=== PATIENT | female | born 1995 | race American Indian/Alaskan Native ===

== ENCOUNTER 2017-06-22 16:46 | Outpatient (CLI) | payer BC ==
[2017-06-22] MEDS ORDERED: LACTATED RINGERS 500 ML IV ONE (17:20)
--- NOTE | 2017-06-22 20:13 | Ultrasound Report ---
FINAL REPORT PROCEDURE: US OB BPP WO NON-STRESS TECHNIQUE: Sonographic evaluation for breathing, movement, tone, and amniotic fluid volume was performed. CPT 86371 HISTORY: decreased fm COMPARISON: No prior studies are available for comparison. FINDINGS: Amniotic fluid volume: Normal-score 2. At least one vertical pocket > 2 cm or more in vertical axis. breathing: Normal-score 2. movement: Normal-score 2. tone: Normal. Score: 8 of 8. heart rate of 145 beats per minute is detected. position was not documented by the teacher assistant. IMPRESSION: Biophysical profile score 8/8. heart rate 145 beats per minute. Further evaluation was neither requested nor performed.
--- NOTE | 2017-06-22 20:55 | Ultrasound Report ---
FINAL REPORT PROCEDURE: US OB LIMITED TECHNIQUE: Real-time limited sonographic examination was performed for evaluation of amniotic fluid index for each fetus with image documentation (1 or more fetuses). CPT 01319 HISTORY: Evaluate amniotic fluid index. COMPARISON: No prior studies are available for comparison. FINDINGS: Single living intrauterine gestation visualized currently in the vertex presentation with heart rate of 145 beats per minute. Subjectively the amount of amniotic fluid appears normal. The amniotic fluid index is normal measuring 19.1 centimeter. Further evaluation was neither requested nor performed. IMPRESSION: Single living intrauterine gestation visualized vertex presentation. Both subjectively and by amniotic fluid index the amount of amniotic fluid appears normal. Further evaluation was neither requested nor performed.
[2017-06-22 21:09] VITALS: BP 134/84
== END 2017-06-22 19:40 | disposition home or self-care (01) ==
LOC: TRG 16:46
PROVIDERS: ATTEND Obstetrics & Gynecology
DX: O36.8130 Decreased fetal movements, third trimester, not applicable or unspecified (principal); O47.03 False labor before 37 completed weeks of gestation, third trimester; Z3A.35 35 weeks gestation of pregnancy
CPT/HCPCS: 59025; 76815; 76819

== ENCOUNTER 2017-07-02 05:44 | Inpatient (IN) | payer BC ==
[2017-07-02] MEDS ORDERED: MINERAL OIL PO PRN (06:51)
[2017-07-02] MEDS ORDERED: BRETHINE IVP PRN (06:51)
[2017-07-02] MEDS ORDERED: XYLOCAINE 2% INFILTRATI ONE (06:51)
[2017-07-02] MEDS ORDERED: ePHEDrine SULFATE IV PRN ×2 (06:51→16:31)
[2017-07-02] MEDS ORDERED: BRETHINE SUB-Q PRN (06:51)
[2017-07-02] MEDS ORDERED: PITOCin/NS 20 UNIT/1000ML DRIP 20 UNITS/1,000 ML BAG IV SCH (07:00)
[2017-07-02 08:01] LABS: Hematocrit 36.4 % (30.3-42.9); Hemoglobin 12.1 gm/dl (10.1-14.3); Mean Corpuscular HGB Conc 33 % (30-34); Mean Corpuscular Hemoglobin 28 pg (28-32); Mean Corpuscular Volume 84 fl (79-97); Platelet Count 245 K/mm3 (140-440); Red Blood Count 4.35 M/mm3 (3.65-5.03); Red Cell Distribution Width 14.5 % (13.2-15.2)
[2017-07-02] MEDS: NORMOSOL-R PH 7.4 1,000 ML IV SCH ×5 (08:48→21:13)
[2017-07-02] MEDS ORDERED: PITOCin/NS 30 UNIT/500ML 30 UNITS/500 ML BAG IV SCH (12:00)
--- NOTE | 2017-07-02 14:53 | History and Physical Report ---
History of Present Illness Date of examination: 07/02/17 Date of admission: 07/02/17 05:45 Chief complaint: leaking History of present illness: This is a 22 yo EDC 07/19/17 at 37 weeks came in c/o leaking of fluid. She is a patient of [facility] as a transfer patient. She states that she broke her water this am. Past History Past Medical History: asthma Past Surgical History: other (wisdom tooth extraction) Family/Genetic History: hypertension Social history: no significant social history, single. denies: smoking, alcohol abuse, prescription drug abuse - Obstetrical History Expected Date of Delivery: 07/19/17 Actual Gestation: 37 Week(s) 4 Day(s) : 2 Para: 0 Hx # Term Pregnancies: 0 Number of Pregnancies: 0 Spontaneous Abortions: 0 Induced : 1 Number of Living Children: 0 Medications and Allergies Allergies Allergy/AdvReac Type Severity Reaction Status Date / Time Penicillins Allergy Shortness Verified 06/22/17 17:19 of Breath Home Medications Medication Instructions Recorded Confirmed Last Taken Type No Known Home Medications [No 06/22/17 07/02/17 Unknown History Reported Home Medications] Active Meds: Active Medications Ephedrine Sulfate (Ephedrine Sulfate) 10 mg IV Q2M PRN PRN Reason: Hypotension Parenteral Electrolytes (Normosol-R Ph 7.4) 1,000 mls @ 125 mls/hr IV DIRECT DIEGO Last Admin: 07/02/17 12:18 Dose: 125 mls/hr Oxytocin/Sodium Chloride (Pitocin/Ns 20 Unit/1000ml Drip) 20 units in 1,000 mls @ 125 mls/hr IV DIRECT DIEGO Oxytocin/Sodium Chloride (Pitocin/Ns 30 Unit/500ml) 30 units in 500 mls @ 4 mls /hr IV TITR DIEGO; Protocol Last Titration: 07/02/17 14:00 Dose: 12 mls/hr, 12 mls/hr Mineral Oil (Mineral Oil) 30 ml PO QHS PRN PRN Reason: Constipation Terbutaline Sulfate (Brethine) 0.25 mg SUB-Q ONCE PRN PRN Reason: Hyperstimulation/Hypertonicity Terbutaline Sulfate (Brethine) 0.25 mg IVP ONCE PRN PRN Reason: Hyperstimulation/Hypertonicity Review of Systems All systems: negative Genitourinary: leakage of fluid - Vital Signs Vital signs: Vital Signs Temp Resp 98.8 F 18 07/02/17 06:09 07/02/17 06:09 Temp Pulse Resp BP Pulse Ox 96.9 F L 91 H 16 122/82 98 07/02/17 07:36 07/02/17 14:48 07/02/17 07:36 07/02/17 07:40 07/02/17 14:48 - Physical Exam Breasts: Positive: normal Cardiovascular: Regular rate, Normal S1 Lungs: Positive: Clear to auscultation, Normal air movement Abdomen: Positive: normal appearance, soft, normal bowel sounds. Negative: distention, tenderness, guarding Genitourinary (Female): Positive: normal external genitalia, normal perenium Vulva: both: normal Vagina: Positive: normal moisture Cervix: Positive: lesion Uterus: Positive: normal size Anus/Rectum: Positive: normal perianal skin, heme negative Extremities: Positive: normal Deep Tendon Reflex Grade: Normal +2 - Obstetrical FHR: category 1 Cervical Dilatation: 1 Cervical Effacement Percentage: 50 station: -2 Uterine Contraction Pattern: Regular Uterine Tone Measurement Phase: Contraction Uterine Contraction Intensity: Mild Results Result Diagrams: 07/02/17 07:50 All other labs normal. Assessment and Plan A/P HD#1 IUP 39 + 4 weeks srom GBS neg start pitocin offer epidural expect vaginal delivery
[2017-07-02] MEDS ORDERED: NARCAN 2 MG/2 ML IV PRN (16:31)
--- NOTE | 2017-07-02 16:31 | Anesthesia Consultation ---
Anesthesia Consult and Med Hx Date of service: 07/02/17 - Airway Anesthetic Teeth Evaluation: Good ROM Head & Neck: Adequate Mental/Hyoid Distance: Adequate Mallampati Class: Class II Intubation Access Assessment: Probably Good - Pre-Operative Health Status ASA Pre-Surgery Classification: ASA2 Proposed Anesthetic Plan: Epidural, Spinal - Pulmonary Hx Asthma: Yes (inhaler used prn) COPD: No Hx Pneumonia: No - Cardiovascular System Hx Hypertension: No - Central Nervous System Hx Seizures: No Hx Psychiatric Problems: No - Endocrine Hx Renal Disease: No Hx End Stage Renal Disease: No Hx Hypothyroidism: No Hx Hyperthyroidism: No - Hematic Hx Anemia: No Hx Sickle Cell Disease: No - Other Systems Hx Alcohol Use: No
[2017-07-02] MEDS ORDERED: fentaNYL-BUPIV 2 MCG/ML-0.125% 200 MCG/100 ML BAG EPIDURAL SCH (17:00)
[2017-07-03] MEDS ORDERED: REGLAN IV ONE (02:59)
[2017-07-03] MEDS ORDERED: BICITRA PO ONE (02:59)
[2017-07-03] MEDS ORDERED: PEPCID IV ONE (02:59)
[2017-07-03] MEDS ORDERED: GARAMYCIN/NS 120MG/100ML 120 MG/100 ML BAG IV SCH (03:00)
[2017-07-03] MEDS ORDERED: PITOCin/NS 20 UNIT/1000ML DRIP 20 UNITS/1,000 ML BAG IV SCH ×2 (03:00→04:00)
[2017-07-03] MEDS ORDERED: NORMOSOL-R PH 7.4 1,000 ML IV SCH (03:00)
[2017-07-03] MEDS ORDERED: CLEOCIN 600 MG/50 mL 600 MG/50 ML BAG IV NR (03:00)
--- NOTE | 2017-07-03 03:03 | Event Note ---
Date: 07/03/17 The patient progressed to C/C/+1 and commenced pushing but has not had any descent after 2 hours of effective maternal effort. Discussed with patient the available options and she has elected for a primary delivery.
--- NOTE | 2017-07-03 03:06 | Procedure Note ---
OB Delivery Note - Delivery Date of Delivery: 07/03/17 Surgeon: EDGAR REYNOLDS Estimated blood loss: other (600ml) - Section Preop diagnosis: arrest of descent Postop diagnosis: same section procedure: section, primary low transverse Disposition: PACU Complications: none - Infant A at 1 minute: 7 at 5 minutes: 9 Infant Gender: Female (weight 8 lbs. 1 oz.)
[2017-07-03] MEDS ORDERED: MILK OF MAGNESIA PO PRN (03:13)
[2017-07-03] MEDS ORDERED: TORADOL IV PRN (03:13)
[2017-07-03] MEDS ORDERED: TYLENOL PO PRN (03:13)
[2017-07-03] MEDS ORDERED: MYLICON PO PRN (03:13)
[2017-07-03] MEDS ORDERED: MORPHINE IV PRN (03:13)
[2017-07-03] MEDS ORDERED: TUCKS PAD TP PRN (03:13)
[2017-07-03] MEDS ORDERED: NARCAN 0.4 MG/1 ML IV PRN ×2 (03:13→04:51)
[2017-07-03] MEDS ORDERED: LANSINOH TP PRN (03:13)
[2017-07-03] MEDS ORDERED: XYLOCAINE MPF 2% ONE ×7 (03:17→04:16)
[2017-07-03] MEDS: NORMOSOL-R PH 7.4 1,000 ML IV SCH (03:18)
[2017-07-03] MEDS ORDERED: NACL 0.9% IR ONE (03:30)
[2017-07-03] MEDS ORDERED: WATER FOR IRRIG STERILE IR ONE (03:30)
[2017-07-03] MEDS ORDERED: TORADOL ONE (03:44)
[2017-07-03] MEDS ORDERED: ZOFRAN ONE (03:44)
[2017-07-03] MEDS ORDERED: KETALAR ONE (03:48)
[2017-07-03] MEDS ORDERED: SODIUM CHLORIDE FLUSH SYRINGE 10 ML IV PRN (04:00)
[2017-07-03] MEDS ORDERED: D5LR 1,000 ML IV SCH (04:00)
[2017-07-03] MEDS ORDERED: VERSED ONE (04:00)
[2017-07-03] MEDS ORDERED: ASTRAMORPH PF 10MG/10ML ONE (04:15)
--- NOTE | 2017-07-03 04:29 | Operative Report ---
Operative Report Operative Report: Date of surgery: 07/03/2017 Preoperative diagnosis: at 37+5 weeks; spontaneous rupture membranes; arrested descent Postoperative diagnosis: Same as above Procedure: Primary low-transverse delivery Surgeon: Jolynn Tapia M.D.Anesthesia: Regional Estimated blood loss: 600 mL Findings: Liveborn female infant with Apgars of 7 and 9 weight 8 lbs. 1 oz. Indications: 22-year-old at 37+5 weeks who presented with spontaneous rupture membranes. The patient's intrapartum course was complicated by arrest of descent at +1 station. Procedure: The patient was taken to the operating room and given regional anesthesia without complication. She was prepped and draped in a normal sterile fashion. A Pfannenstiel skin incision was made down to layer the fascia which was nicked in the midline extended laterally with the Bovie cautery. The superior aspect of the rectus fascia was grasped with [place] clamps x2 and the rectus muscles off sharply. This was done in inferior fashion as well. The rectus muscle midline and peritoneum entered bluntly. An Oliverio retractor was then inserted. A bladder blade was placed. The vesicouterine peritoneum was then entered sharply with Metzenbaum scissors. A bladder flap was created digitally. A low transverse uterine incision was then made and extended digitally. There was clear fluid upon entry into the uterine cavity. The was noted to be in OP position upon entry into the uterine cavity. The head was delivered through the incision with fundal pressure. The cord was clamped and cut x2 and was passed off to pediatrics. The placenta was then manually extracted. The uterus was then exteriorized and cleared of clots and debris. The uterine incision was then closed in a running locked fashion with 0 Vicryl additional imbricating stitch was applied for 2 layer closure. The serosa was then reapproximated with 3-0 Vicryl. The posterior cul-de-sac was then copiously irrigated. The uterus was replaced back into the abdomen and pelvis were the gutters were then irrigated. The Oliverio retractor was then removed. The peritoneum was then reapproximated with 3-0 Vicryl incorporating the rectus muscle. The fascia was then closed with 0 Vicryl in a running fashion. The skin was then reapproximated with 3-0 Monocryl on a Albaro needle subcuticular fashion. Steri-Strips to place across the incision and a Crede procedures performed at the end of the surgery. A pressure dressing was applied to the incision. The surgery productive of a liveborn female infant with Apgars of 7 and 9 weight 8 lbs. 1 oz. The patient was taken to the recovery room in stable condition. All sponge laps and needle counts correct x2.
[2017-07-03] MEDS ORDERED: PHENERGAN PR PRN (04:51)
[2017-07-03] MEDS ORDERED: DILAUDID IV PRN (04:51)
[2017-07-03] MEDS ORDERED: BENADRYL IV PRN (04:51)
[2017-07-03] MEDS ORDERED: ZOFRAN IV PRN (04:51)
[2017-07-03] MEDS ORDERED: PHENERGAN PO PRN (04:51)
[2017-07-03] MEDS ORDERED: NUBAIN IV PRN (04:51)
[2017-07-03] MEDS ORDERED: SODIUM CHLORIDE FLUSH SYRINGE 10 ML IV NR (05:00)
[2017-07-03 15:25] LABS: Hematocrit 29.4 % (30.3-42.9); Hemoglobin 9.6 gm/dl (10.1-14.3)
[2017-07-03] MEDS ORDERED: NACL 0.9% 1000 ML 1,000 ML IV ONE (16:56)
--- NOTE | 2017-07-03 18:29 | Progress Note ---
Assessment and Plan - Patient Problems (1) Tachycardia Current Visit: Yes Status: Acute Plan to address problem: Continue to monitor closely for hemodynamic instability Patient currently doing well The patient's pain is well controlled Subjective - Subjective Date of service: 07/03/17 Interval history: The patient is without complaints. She has had minimal need for pain meds. Her postoperative course has been complicated by tachycardia however the patient remains asymptomatic. Patient reports: appetite normal, pain well controlled : doing well Objective - Vital Signs Latest vital signs: Vital Signs Temp Pulse Resp BP BP Pulse Ox 07/03/17 18:05 99.9 F H 127 H 20 114/77 97 07/03/17 16:46 113 H 07/03/17 16:45 125 H 07/03/17 16:30 99.5 F 130 H 20 117/65 07/03/17 12:00 98.6 F 100 H 132/80 07/03/17 08:55 98.5 F 102 H 20 134/85 07/03/17 05:35 119 H 17 136/84 97 07/03/17 05:30 98.3 F 117 H 16 128/80 98 07/03/17 05:25 116 H 20 124/80 98 07/03/17 05:20 117 H 21 126/82 98 07/03/17 05:15 110 H 20 129/80 98 07/03/17 05:10 116 H 21 128/89 99 07/03/17 05:05 107 H 44 H 119/79 99 07/03/17 05:00 114 H 32 H 127/83 99 07/03/17 04:55 114 H 29 H 129/83 98 07/03/17 04:50 124 H 33 H 129/86 99 18 04:45 118 H 14 120/85 99 07/03/17 04:40 125 H 28 H 100 07/03/17 04:36 98.1 F 07/03/17 02:49 168 H 100 18 02:48 151 H 90/50 07/03/17 02:44 165 H 100 18 02:39 145 H 100 07/03/17 02:34 144 H 100 07/03/17 02:29 147 H 100 07/03/17 02:24 121 H 100 07/03/17 02:19 120 H 100 03/17/18 02:17 111 H 113/66 17/18 02:14 132 H 100 0317/18 02:10 157 H 90 07/03/18 02:09 144 H 98 031718 02:04 142 H 99 0317/18 01:59 136 H 100 17/18 01:54 160 H 100 17/18 01:49 105 H 99 17/18 01:47 100 H 105/58 17/18 01:44 99 H 100 1718 01:39 98 H 100 0317/18 01:34 99 H 100 17/18 01:29 101 H 100 17/18 01:24 103 H 100 17/18 01:19 112 H 100 18 01:17 113 H 92/59 17/18 01:14 138 H 100 18 01:09 129 H 100 0318 01:04 145 H 100 18 00:59 141 H 100 1718 00:54 162 H 100 18 00:49 141 H 100 17/18 00:48 153 H 115/86 17/18 00:44 133 H 100 17/18 00:39 138 H 100 0317/18 00:34 150 H 99 17/18 00:29 154 H 100 0317/18 00:24 125 H 100 17/18 00:19 126 H 100 0317/18 00:18 120 H 136/89 17/18 00:14 132 H 100 17/18 00:09 124 H 100 17/18 00:04 126 H 100 0316/18 23:59 132 H 100 0316/18 23:54 123 H 100 0316/18 23:49 117 H 100 0316/18 23:48 110 H 136/83 0316/18 23:44 97 H 100 0316/18 23:39 112 H 100 0316/18 23:34 117 H 100 0316/18 23:29 121 H 100 0316/18 23:24 127 H 100 0316/18 23:19 97 H 100 0316/18 23:18 90 125/78 16/18 23:14 100 H 100 03/16/18 23:09 96 H 100 03/16/18 23:04 96 H 100 03/16/18 22:59 104 H 100 03/16/18 22:54 106 H 100 03/16/18 22:49 126 H 100 03/16/18 22:44 108 H 100 03/16/18 22:39 112 H 100 03/16/18 22:34 98 H 100 03/16/18 22:29 90 100 03/16/18 22:24 86 100 03/16/18 22:19 84 100 03/16/18 22:17 88 107/61 03/16/18 22:14 85 100 03/16/18 22:09 83 100 03/16/18 22:04 93 H 100 03/16/18 21:59 104 H 100 03/16/18 21:54 96 H 100 03/16/18 21:49 95 H 100 03/16/18 21:48 88 105/64 03/16/18 21:44 89 100 03/16/18 21:39 108 H 100 03/16/18 21:34 99 H 100 03/16/18 21:29 125 H 100 03/16/18 21:24 130 H 100 03/16/18 21:19 103 H 99 03/16/18 21:14 101 H 104/68 99 03/16/18 21:09 108 H 99 03/16/18 21:04 119 H 98 03/16/18 20:59 89 99 03/16/18 20:58 112 H 111/75 90 03/16/18 20:54 96 H 99 03/16/18 20:49 85 99 03/16/18 20:44 90 99 03/16/18 20:43 94 H 109/71 03/16/18 20:39 84 99 03/16/18 20:34 88 99 03/16/18 20:29 89 100 03/16/18 20:23 83 99 03/16/18 20:18 87 100 03/16/18 20:13 90 100 03/16/18 20:08 79 99 03/16/18 20:04 104 H 94 03/16/18 20:03 101 H 98 03/16/18 20:00 114 H 123/57 03/16/18 19:58 112 H 97 03/16/18 19:53 97 H 96 03/16/18 19:49 99 H 94 18 19:48 79 97 18 19:43 94 H 113/76 96 18 19:38 102 H 96 18 19:33 104 H 98 1618 19:29 100 H 114/79 18 19:28 97 H 97 18 19:23 89 97 18 19:18 96 H 97 18 19:14 102 H 118/72 18 19:13 109 H 97 07/02/17 19:08 111 H 98 18 19:06 100 H 114/76 07/02/17 19:03 111 H 97 07/02/17 19:02 98.1 F 20 07/02/17 18:58 114 H 114/71 96 18 18:53 100 H 95 18 18:48 110 H 97 18 18:43 108 H 113/68 97 18 18:41 101 H 93 18 18:38 104 H 97 18 18:34 94 H 94 18 18:33 89 95 Intake and Output 07/03/17 07/03/17 07/03/17 06:59 14:59 22:59 Intake Total 2760.417 360 120 Output Total 475 Balance 2285.417 360 120 Intake: IV 2760.417 Normosol-R pH 7.4 1,000 760.417 ml @ 125 mls/hr IV DIRECT DIEGO Rx#:[id number] Oral 360 120 Output: Urine 475 Other: Total, Intake Amount 240 120 # Voids Indwelling Catheter 1,000 600 Void 0 - Exam Abdomen: Present: normal appearance Uterus: Present: normal Incision: Present: dressed - Labs Labs: Abnormal lab results 07/03/17 Range/Units 15:06 Hgb 9.6 L (10.1-14.3) gm/dl Hct 29.4 L D (30.3-42.9) %
[2017-07-04] MEDS: MOTRIN PO PRN ×3 (00:29→17:58)
[2017-07-04] MEDS: NACL 0.9% 1000 ML 1,000 ML IV SCH (02:01)
[2017-07-04] MEDS: GARAMYCIN/NS 80 MG/100 ML 100 ML IV SCH ×3 (02:32→18:59)
[2017-07-04] MEDS ORDERED: BOOSTRIX IM ONE (06:00)
[2017-07-04] MEDS: CLEOCIN 600 MG/50 mL 600 MG/50 ML BAG IV SCH ×2 (10:00→18:16)
--- NOTE | 2017-07-04 11:14 | Progress Note ---
Assessment and Plan - Patient Problems (1) Tachycardia Current Visit: Yes Status: Acute (2) Myometritis Current Visit: Yes Status: Acute Plan to address problem: Continue IV antibiotics Routine postoperative care Consider discharge home tomorrow if the patient remains afebrile Subjective - Subjective Date of service: 07/04/17 Interval history: The patient had evidence of a temperatures by approximately midnight of 100.5. She was initiated on IV antibiotics. The patient reports improvement in her symptoms since initiating the antibiotics and her tachycardia has improved. Patient reports: appetite normal, voiding normally, pain well controlled [place]: doing well, nursing well Objective - Vital Signs Latest vital signs: Vital Signs Temp Pulse Resp BP Pulse Ox 07/04/17 08:00 97 H 20 119/89 98 07/04/17 05:32 18 07/04/17 04:35 98.2 F 91 H 20 123/79 07/04/17 01:29 18 07/04/17 00:29 18 07/04/17 00:00 100.5 F H 115 H 20 116/70 07/03/17 20:25 98.0 F 131 H 20 111/62 07/03/17 19:22 18 07/03/17 18:05 99.9 F H 127 H 20 114/77 97 07/03/17 16:46 113 H 07/03/17 16:45 125 H 07/03/17 16:30 99.5 F 130 H 20 117/65 07/03/17 12:00 98.6 F 100 H 132/80 Intake and Output 07/03/17 07/04/17 07/04/17 22:59 06:59 14:59 Intake Total 480 220 600 Output Total 1400 Balance -920 220 600 Intake: IV 100 Garamycin/Ns 80 mg/100 ml 100 100 ml @ 200 mls/hr IV Q8H [facility] Rx#:[id number] Oral 480 120 240 Intake, Free Water 360 Output: Urine 1400 Void 1400 Other: Total, Intake Amount 240 120 240 Total, Output Amount 800 # Voids Indwelling Catheter 600 Void 3 1 1 - Exam Abdomen: Present: normal appearance Uterus: Present: normal Incision: Present: dressed - Labs Labs: Abnormal lab results 07/03/17 Range/Units 15:06 Hgb 9.6 L (10.1-14.3) gm/dl Hct 29.4 L D (30.3-42.9) %
[2017-07-04] MEDS: PERCOCET 5/325 PO PRN (17:57)
[2017-07-05] MEDS: GARAMYCIN/NS 80 MG/100 ML 100 ML IV SCH ×3 (01:55→18:00)
[2017-07-05] MEDS: CLEOCIN 600 MG/50 mL 600 MG/50 ML BAG IV SCH ×3 (02:51→18:30)
[2017-07-05] MEDS: PERCOCET 5/325 PO PRN ×3 (03:52→22:05)
--- NOTE | 2017-07-05 08:37 | Progress Note ---
Assessment and Plan A/P POD#2 csec myometiritis on abx afebrile continue abx d/c abx 1200 tonight consider d/c home tomorrow Subjective - Subjective Date of service: 07/05/17 Principal diagnosis: s/p primary csec Interval history: This is a 22 yo EDC 07/19/17 at 37 weeks came in c/o leaking of fluid. She is a patient of [place] as a transfer patient. She states that she broke her water this am. Patient reports: appetite normal, voiding normally, pain well controlled, flatus , ambulating normally : doing well Objective - Vital Signs Latest vital signs: Vital Signs Temp Pulse Resp BP Pulse Ox 07/05/17 04:52 20 07/05/17 03:52 18 07/05/17 00:00 98.6 F 78 16 101/68 07/04/17 18:58 18 07/04/17 18:57 18 07/04/17 16:31 99.3 F 113 H 20 121/77 99 Intake and Output 07/04/17 07/05/17 07/05/17 23:59 07:59 15:59 Intake Total 990 200 Balance 990 200 Intake: IV 150 CLEOCIN 600 MG/50 mL 600 50 mg In 50 ml @ 100 mls/hr IV Q8H [facility] Rx#:[id number] Garamycin/Ns 80 mg/100 ml 100 100 ml @ 200 mls/hr IV Q8H [facility] Rx#:[id number] Oral 240 200 Intake, Free Water 600 Other: Total, Intake Amount 240 200 # Voids Void 2 - Exam Breasts: Present: normal Cardiovascular: Present: Regular rate, Normal S1 Lungs: Present: Clear to auscultation, Normal air movement Abdomen: Present: normal appearance, soft, normal bowel sounds. Absent: distention, tenderness, guarding Vulva: both: normal Uterus: Present: normal, firm. Absent: bogginess, tenderness, fundal height below umbilicus Extremities: Present: normal Deep Tendon Reflex Grade: Normal +2 Incision: Present: normal, dry, intact
[2017-07-05] MEDS: NACL 0.9% 1000 ML 1,000 ML IV SCH (10:42)
[2017-07-06] MEDS: MOTRIN PO PRN (00:22)
--- NOTE | 2017-07-06 09:15 | Progress Note ---
Assessment and Plan - Patient Problems (1) Tachycardia Current Visit: Yes Status: Acute Plan to address problem: Patient doing well Discharge home (2) Myometritis Current Visit: Yes Status: Acute Subjective - Subjective Date of service: 07/06/17 Principal diagnosis: s/p primary csec Interval history: Patient doing much better today. She is remained afebrile. She reports her pain is well controlled. Patient reports: appetite normal, voiding normally, pain well controlled : doing well, nursing well Objective - Vital Signs Latest vital signs: Vital Signs Temp Pulse Resp BP Pulse Ox 07/06/17 01:22 18 07/06/17 00:22 18 07/06/17 00:00 99.4 F 106 H 18 117/79 07/05/17 23:05 18 07/05/17 22:05 18 07/05/17 16:40 98.1 F 82 16 122/87 97 07/05/17 12:37 20 Intake and Output 07/05/17 07/06/17 07/06/17 22:59 06:59 14:59 Intake Total 1080 240 Balance 1080 240 Intake: Oral 480 Intake, Free Water 600 240 Other: Total, Intake Amount 240 # Voids Void 1 1 # Bowel Movements 1 - Exam Abdomen: Present: normal appearance, soft Incision: Present: normal
--- NOTE | 2017-07-06 09:16 | Discharge Summary ---
Providers - Providers Date of Admission: 07/02/17 05:45 Date of discharge: 07/06/17 Attending physician: LATASHA HERNDON MD Primary care physician: LATASHA HERNDON MD Hospitalization Reason for admission: active labor Delivery: Procedure: section, primary low transverse Incision: normal complications: other (myometritis) Discharge diagnosis: IUP at term delivered [place] baby: female Hospital course: The patient was admitted for augmentation secondary to spontaneous rupture membranes. The patient's intrapartum course was complicated by an arrest of descent for which we had to proceed with a primary delivery. Her postoperative course was complicated by my metritis which the patient was initiated on IV antibiotics. She had significant improvement in her clinical status and was discharged home postoperative day 3. Condition at discharge: Good Disposition: DC-01 TO HOME OR SELFCARE - Discharge Diagnoses (1) Tachycardia Status: Acute (2) Myometritis Status: Acute Plan - Discharge Medications Prescriptions: Docusate Sodium [Colace] 100 mg PO BID PRN #60 capsule PRN Reason: Constipation Ferrous Sulfate [Feosol 325 MG tab] 325 mg PO BID #60 tablet Ibuprofen [Motrin] 800 mg PO Q8HR PRN #60 tablet PRN Reason: Pain Levofloxacin [Levaquin TAB] 500 mg PO QDAY #10 tablet Oxycodone HCl/Acetaminophen [Percocet 7.5/325 mg] 1 each PO Q6HR PRN #30 tablet PRN Reason: Pain - Provider Discharge Summary Activity: no sex for 6 weeks, no heavy lifting 4 weeks, no strenuous exercise Diet: routine Instructions: routine Additional instructions: [] Smoking cessation referral if applicable(refer to patient education folder for contact #) [] Refer to [facility]'s [facility] Booklet Call your doctor immediately for: * Fever > 100.5 * Heavy vaginal bleeding ( >1 pad per hour) * Severe persistent headache * Shortness of breath * Reddened, hot, painful area to leg or breast * Drainage or odor from incision. * Keep incision clean and dry at all times and follow doctor's instructions regarding bathing/showering Scheduled follow-up in 2 weeks for an incision check - Follow up plan Forms: [facility] Discharge Summary, Discharge Signature Page
[2017-07-06 09:17] VITALS: BP 121/91
== END 2017-07-06 11:05 | disposition home or self-care (01) | DRG 765 ==
LOC: TRG 05:44 → LD 05:45 → TRG 05:54 → OB 07-03 06:22
PROVIDERS: ADMIT Obstetrics & Gynecology; ATTEND Obstetrics & Gynecology
PROC: 10D00Z1 Extraction of Products of Conception, Low, Open Approach (ICD-10-PCS; principal; 2017-07-03)
DX: O75.3 Other infection during labor (principal); R71.0 Precipitous drop in hematocrit; O62.2 Other uterine inertia; O76 Abnormality in fetal heart rate and rhythm complicating labor and delivery; Z3A.37 37 weeks gestation of pregnancy; Z37.0 Single live birth; Z82.49 Family history of ischemic heart disease and other diseases of the circulatory system; O99.02 Anemia complicating childbirth
CPT/HCPCS: 36415; 85014; 85018; 85027; 86592; 86850; 86900; 86901; 90471; 90715; 99211; A6250; G0463; J1580; J1885; J2250; J2274; J2405; J2590; J2765; J7030; J7121